=== PATIENT | female | born 1960 | race Caucasian/White ===

== ENCOUNTER 2017-03-16 22:56 | Emergency (ER) | payer OTHER ==
[~2017-03-16] VITALS: Ht 180.3 cm; Wt 84.1 kg
[~2017-03-16 22:56] MED LIST: TEKT150T PO
[2017-03-16 23:03] VITALS: BP 142/80; PULSE 81; RESP 14; TEMP 98.2; O2SAT 97
[2017-03-16] MEDS ORDERED: TEKT150T PO (23:11)
[2017-03-16] MEDS ORDERED: SIMV5TAB3 PO (23:11)
[2017-03-16] MEDS ORDERED: CLAR10CA3 PO (23:12)
--- NOTE | 2017-03-16 23:38 | PD ---
HPI Chief Complaint: Pain: Acute or Chronic Time Seen by Provider: 23:34 Travel History International Travel<30 days: No Contact w/Intl Traveler<30days: No Traveled to known affect area: No History of Present Illness HPI 56-year-old female presents to the emergency department by private transportation in the care of her spouse for evaluation of left-sided pain after syncopal episode approximate 6 days ago. According the patient she's otherwise had reportedly good health takes no blood thinning agents and developed a flulike illness approximately a week ago . Patient states each time she develops or respiratory/flu like illness she typically develops vertiginous symptoms. Patient states symptoms began on and by Sunday she was quite dizzy and having episodes of vomiting. was with her during her illness assisting her to and from the bathroom. Patient states on Sunday she felt as if she needed to vomit and tried to go to the bathroom quickly without the assistance of her spouse and states that she had a fainting episode. Patient believes episode is brief in duration states that he did not hear her fall but heard her yell for him but her assistance and patient was subsequent return to her bed continued to convalesce and was felt to be back to her normal by Sunday/Sunday. Patient was able to work on Sunday and . Patient today was out walking and noticed that her left side was starting to be more symptomatic and then approximately an hour prior to arrival to the emergency department she felt a popping sensation after coughing. Patient denies any shortness of breath but noticed that the left sided mid axillary pain has increased subsequently. Patient denies any anterior chest pain denies any abdominal pain or flank pain. Patient denies any upper extremity or lower extremity numbness tingling or weakness. Patient states that urgent vertigo has resolved. Patient reports she thinks she might have had a mild concussion after her fall. Patient also had a buttock contusion associated with her fall. Patient rates left-sided pain lasts rib pain 7/10 intensity. PFSH Past Medical History Narrative Medical SVT status post cardiac ablation dyslipidemia hypertension; occasional alcohol use; nursing notes reviewed Heart Rhythm Problems: Yes (SVT - cardiac ablation ) High Cholesterol: Yes Diminished Hearing: No Hypertension: Yes Immunizations Current: Yes Tetanus Vaccination: > 5 Years Influenza Vaccination: Yes ?: Unknown Past Surgical History Cardiac Surgery: Yes (Cardiac ablation for SVT ) Social History Alcohol Use: Yes ([facility]) Tobacco Use: No Substance Use: No Allergies-Medications (Allergen,Severity, Reaction): Coded Allergies: No Known Allergies (Unverified , 03/16/17) Reported Meds & Prescriptions Reported Meds & Active Scripts Active Reported Claritin (Loratadine) 10 Mg Cap 10 Mg PO DAILY Simvastatin 5 Mg Tab 20 Mg PO DAILY Tekturna (Aliskiren) 150 Mg Tab 150 Mg PO DAILY Review of Systems Except as stated in HPI: all other systems reviewed are Neg General / Constitutional: Positive: Fever (last week) HENT: Positive: Headaches (mild; last week), Vertigo (last week), Congestion ( last week) Cardiovascular: Positive: Chest Pain or Discomfort (left chest wallto palpation ), Syncope (fainting episode 6 days ago), No: Palpitations Respiratory: No: Shortness of Breath, Hemoptysis, Pleuritic Pain Gastrointestinal: Positive: Nausea, Vomiting (last week), No: Abdominal Pain Genitourinary: No: Flank Pain Musculoskeletal: Positive: Myalgias, Arthralgias Skin: No Rash Neurologic: Positive: Weakness, Dizziness, Syncope (last week) Psychiatric: No: Anxiety Hematologic/Lymphatic: No: Easy Bruising Physical Exam Narrative GENERAL: Well-developed well-nourished female in no acute distress no respiratory distress; GCS 15; triage vital signs and normal range except for mild hypertension SKIN: Warm and dry. HEAD: Atraumatic. Normocephalic. EYES: Pupils equal and round. No scleral icterus. No injection or drainage. ENT: No nasal bleeding or discharge. Mucous membranes pink and moist. NECK: Trachea midline. No JVD. CARDIOVASCULAR: Regular rate and rhythm. Chest wall: Tender to palpation along the mid axillary line and lower chest wall no ecchymosis or abrasion or crepitus or bony step-off palpated. RESPIRATORY: No accessory muscle use. Clear to auscultation. Breath sounds equal bilaterally. GASTROINTESTINAL: Abdomen soft, non-tender, nondistended. Hepatic and splenic margins not palpable. MUSCULOSKELETAL: Extremities without clubbing, cyanosis, or edema. No obvious deformities. NEUROLOGICAL: Awake and alert. No obvious cranial nerve deficits. Motor grossly within normal limits. Five out of 5 muscle strength in the arms and legs. Normal speech. PSYCHIATRIC: Appropriate mood and affect; insight and judgment normal. Data Data Last Documented VS Vital Signs Date Time Temp Pulse Resp B/P Pulse Ox O2 Delivery O2 Flow Rate FiO2 03/16/17 23:03 98.2 81 14 142/80 97 Orders Ribs, Uni (W/Exp Cxr-Min 3vw) (03/16/17 ) [facility] Medical Decision Making Medical Screen Exam Complete: Yes Emergency Medical Condition: Yes Medical Record Reviewed: Yes Interpretation(s) Last Impressions Ribs X-Ray 03/16/17 0000 Signed Impressions: Service Date/Time: Thursday, March 16, 2017 23:40 - CONCLUSION: Unremarakble examination of the left ribs and chest. Jaime Vargas MD Differential Diagnosis Chest wall contusion, rib fracture, pneumothorax, effusion, pulmonary contusion , syncope, vertigo, arrhythmia, electronic disturbance, UTI, renal contusion Narrative Course Discussed with patient recommendation for saline lock electrolyte evaluation EKG CT brain noncontrast as well as rib series to evaluate various complaints. Patient refuses all studies except for x-ray of the left ribs. Patient reports all symptoms from last week illness is resolving except for worsening left sided pain and left rib pain with a pop this evening and is concerned that symptoms are not improving. Rib series resulted per reading radiologist and reviewed by me no infiltrate no pneumothorax no displaced rib fracture no acute abnormalities identified Discussed again with at bedside recommendation for thorough evaluation with lab work and EKG CAT scan and patient declines; physical exam neurologic exam and normal range except for tenderness to left chest wall to palpation. Diagnosis Primary Impression: Contusion of rib on left side Qualified Code: S20.212A - Contusion of rib on left side, initial encounter Referrals: Primary Care Physician 3 days Patient Instructions: General Instructions Additional Instructions: Increase fluid hydration take acetaminophen/Tylenol every 4-6 hours as needed for pain or for fever 100.4 days Fahrenheit or greater Return to the emergency department for any concerns change in condition shortness of breath or increased chest discomfort/rib pain Follow-up with primary care provider call office on Sunday to schedule follow- up appointment Med/Other Pt SpecificInfo: No Change to Meds Disposition: 01 DISCHARGE HOME Condition: Stable Alice Andrade MD March 16, 2017 23:38
--- NOTE | 2017-03-16 23:58 | RADHPO ---
EXAM DATE/TIME: 03/16/2017 23:40 [facility] COMPARISON: No previous studies available for comparison. INDICATIONS : Left flank pain post slip and fall. MEDICAL HISTORY : Hypertension. SURGICAL HISTORY : None. ENCOUNTER: Initial ACUITY: 4 - 6 days PAIN SCORE: 9/10 LOCATION: Left flank FINDINGS: Multiple views of the left ribs were performed. There is no evidence of displaced fracture. No dest ructive lesions or areas of periosteal thickening are seen. Expiratory view of the chest is negative for pneumothorax. The mediastinal structures are midline. CONCLUSION: Unremarakble examination of the left ribs and chest. Jaime Vargas MD on March 16, 2017 at 23:57 Board Certified Radiologist. This report was verified electronically.
[2017-03-17 00:33] VITALS: BP 136/84
== END 2017-03-17 00:34 | disposition home or self-care (01) ==
LOC: PHED 22:56
DX: S20.212A Contusion of left front wall of thorax, initial encounter (principal); R11.2 Nausea with vomiting, unspecified; R53.1 Weakness; R42 Dizziness and giddiness; R55 Syncope and collapse; I10 Essential (primary) hypertension; E78.00 Pure hypercholesterolemia, unspecified; W19.XXXA Unspecified fall, initial encounter; Z79.899 Other long term (current) drug therapy
CPT/HCPCS: 71101; 99283